=== PATIENT | female | born 1995 | race African-American/Black ===

== ENCOUNTER 2017-01-23 21:05 | Observation (INO) | payer MEDICAID, OTHER | END 2017-01-23 22:10 | disposition home or self-care (01) | DRG 566 | LOC: LDRP 21:05 | PROVIDERS: ADMIT Obstetrics & Gynecology; ATTEND Obstetrics & Gynecology | DX: O26.93 Pregnancy related conditions, unspecified, third trimester (principal); Z3A.36 36 weeks gestation of pregnancy | CPT/HCPCS: 59025; 81002; G0378 ==